=== PATIENT | female | born 1970 | race Caucasian/White ===

== ENCOUNTER 2017-08-09 15:34 | Emergency (ER) | payer MEDICAID ==
[~2017-08-09] VITALS: Wt 70.1 kg
[2017-08-09] MEDS ORDERED: KETOROLAC 60 MG INJ IM STA (16:10)
[2017-08-09] MEDS ORDERED: IBUP-1542 PO (17:16)
[2017-08-09] MEDS ORDERED: TRAM50TA2 PO (17:16)
--- NOTE | 2017-08-09 17:18 | RADRPT ---
PROCEDURE: XR Cervical Spine. CLINICAL INDICATION: Neck pain. TECHNIQUE: AP, lateral, and open mouth views of the cervical spine were obtained. COMPARISON: None FINDINGS: The cervical lordosis is reversed. The vertebral body and disk space heights are normal. No acute fracture or subluxation is seen. The atlantoaxial joint, odontoid process, and lateral masses are i ntact. No prevertebral soft tissue abnormality is seen. IMPRESSION: Reversal of the cervical lordosis. Otherwise, unremarkable cervical spine series. RPTAT: [facility]PN[facility] Physician Everardo Date Time Electronically viewed and signed by Physician Everardo on 08/09/2017 17:18 /
--- NOTE | 2017-08-09 17:21 | ERD ---
ER Documentation Chief Complaint Chief Complaint LEFT SHOULDER PAIN, ONSET THIS AM, NO INJURY, NO CP HPI This 47-year-old female presents with pain in her left shoulder radiating to her left hand with some sensation of paresthesias. Started a few hours after waking this morning. Patient denies any history of trauma patient has a fevers or recent illnesses. She denies any restricted range of motion or weakness. Symptoms are isolated to her left upper ROS All systems reviewed and are negative except as per history of present illness. Medications Home Meds Active Scripts Ibuprofen* (Motrin*) 600 Mg Tab, 600 MG PO Q6, #20 TAB Prov:LAZARO PASCAL MD 08/09/17 Tramadol HCl (Tramadol HCl) 50 Mg Tablet, 50 MG PO Q4 Y for PAIN, #20 TAB Prov:LAZARO PASCAL MD 08/09/17 Physical Exam Vitals Vital Signs Date Time Temp Pulse Resp B/P Pulse Ox O2 Delivery O2 Flow Rate FiO2 08/09/17 15:37 98.4 60 18 174/82 98 Physical Exam Const: [] Alert, [id number]. Head: Atraumatic Eyes: Normal Conjunctiva ENT: Normal External Ears, Nose and Mouth. Neck: Full range of motion..~ No meningismus. Resp: Clear to auscultation bilaterally Cardio: Regular rate and rhythm, no murmurs Abd: Soft, non tender, non distended. Normal bowel sounds Skin: No petechiae or rashes Back: No midline or flank tenderness Ext: No cyanosis, or edema. Mild tenderness in the cervical paraspinous muscles left trapezius. No bony tenderness or deformities or midline tenderness. No restricted range of motion weakness. Left upper extremity is neurovascularly intact. Neur: Awake and alert Psych: Normal Mood and Affect Results 24 hrs Current Medications Medications (Trade) Dose Ordered Sig/Cat Route PRN Reason Start Time Stop Time Status Last Admin Dose Admin Ketorolac Tromethamine (Toradol) 60 mg ONCE STAT IM 08/09/17 16:10 08/09/17 16:12 DC Procedures/MDM EKG: Rate/Rhythm: [Normal Sinus Rhythm] rate equals 61 QRS, ST, T-waves: [No changes consistent w/ acute ischemia] Impression: [No evidence of ischemia or arrhythmia] impression have normal EKG X-ray C spine 3V Interpreted by me: Bones: [No fracture] Joints: [No dislocation] Foreign body: [None]. Impression-normal C-spine x-ray Patient presents with signs and symptoms consistent with cervical radicular pain. No evidence to suggest epidural abscess, deficits, weakness, fracture, dislocation, additional emergent causes of presenting complaints. She will treated with ibuprofen and tramadol primary care follow-up, return precautions and further observation at home. The patient was stable with no new complaints during the ER course. Clinically, there is no current evidence to suggest meningitis, sepsis, acute abdomen, pneumonia, acute coronary syndrome, pulmonary embolism, or any other emergent condition appearing to require further evaluation or hospitalization. The patient should certainly return for any new or worsening symptoms per the aftercare instructions. They should otherwise follow-up with her primary care doctor for reevaluation this week. Departure Diagnosis: Primary Impression: Cervical radicular pain Condition: Stable Patient Instructions: Radiculopathy, Cervical Additional Instructions: Her normal. Likely pinched nerve from neck. Follow-up with primary doctor or for new or worsening symptoms. LAZARO PASCAL MD Aug 09, 2017 17:21
[2017-08-09 18:46] VITALS: BP 132/77; PULSE 77; RESP 18; TEMP 98.4
== END 2017-08-09 18:47 | disposition home or self-care (01) ==
LOC: FTE 15:34
DX: M54.12 Radiculopathy, cervical region (principal)
CPT/HCPCS: 72040; 93005; 96372; J1885; Z7502

== ENCOUNTER 2018-02-07 13:48 | Emergency (ER) | END 2018-02-07 17:00 | disposition home or self-care (01) ==